=== PATIENT | female | born 1980 | race Caucasian/White ===

== ENCOUNTER 2020-11-18 12:21 | Emergency (ER) | payer SELFPAY ==
[~2020-11-18] VITALS: Ht 165.1 cm; Wt 51.7 kg
--- NOTE | 2020-11-18 13:05 | NUR ---
TO ER BED 16 VIA W/C FOR EVAL AND TREATMENT OF DIZZINESS.
[2020-11-18] MEDS ORDERED: IV NS 0.9% 1,000 ML BAG IV ONE (13:30)
[2020-11-18] MEDS ORDERED: MECLIZINE HCL 12.5 MG TABLET PO ONE (13:30)
[2020-11-18] MEDS: ONDANSETRON 4 MG TAB.RAPDIS PO ONE ×2 (14:00→14:11)
[2020-11-18] MEDS ORDERED: MECLIZINE HCL 25 MG TABLET ONE (14:01)
[2020-11-18] MEDS ORDERED: ONDANSETRON HCL/PF 4 MG/2 ML VIAL ONE (14:01)
[2020-11-18 14:25] LABS: BASOPHILS % (AUTO) 0.3 % (0.0-2.0); EOSINOPHILS % (AUTO) 0.9 % (0.0-6.0); HEMATOCRIT 36 % (33-45); HEMOGLOBIN 11.7 g/dL (11.5-14.8); LYMPHOCYTES # (AUTO) 1.9 K/uL (0.8-4.8); LYMPHOCYTES % (AUTO) 25.7 % (20.0-44.0); MEAN CORPUSCULAR HGB CONC 32 g/dl (31.0-36.0); MEAN CORPUSCULAR VOLUME 90 fL (82-100); MONOCYTES # (AUTO) 0.4 K/uL (0.1-1.30); MONOCYTES % (AUTO) 5.5 % (2.0-12.0); NEUTROPHILS # (AUTO) 4.9 K/uL (1.8-8.9); NEUTROPHILS % (AUTO) 67.6 % (43.0-81.0); PLATELET COUNT (AUTO) 277 K/uL (150-450); RED BLOOD CELL COUNT(AUTO) 4.03 MIL/uL (4.0-5.2); WHITE BLOOD COUNT (AUTO) 7.3 K/uL (4.3-11.0)
[2020-11-18] MEDS ORDERED: ONDANSETRON HCL/PF - ER 4 MG/2 ML VIAL IV ONE (14:30)
[2020-11-18 14:42] LABS: ALANINE AMINOTRANSFERASE 25 U/L (12-78); ALBUMIN 3.8 g/dL (3.4-5.0); ALKALINE PHOSPHATASE 65 U/L (46-116); ASPARTATE AMINOTRANSFERASE 12 U/L (15-37); BILIRUBIN,DIRECT 0.1 mg/dL (0.0-0.2); BILIRUBIN,TOTAL 0.5 mg/dL (0.2-1.0); CALCIUM, SERUM 8.7 mg/dL (8.5-10.1); CARBON DIOXIDE 27 mmol/L (21-32); CHLORIDE 104 mmol/L (98-107); CREATININE 0.6 mg/dL (0.6-1.3); GLUCOSE 94 mg/dL (74-106); POTASSIUM 3.2 mmol/L (3.5-5.1); SODIUM SERUM 141 mmol/L (136-145); TOTAL PROTEIN, SERUM 7.8 g/dL (6.4-8.2); UREA NITROGEN, BLOOD 8 mg/dL (7-18)
[2020-11-18] MEDS ORDERED: IV NS 0.9% 1,000 ML IV ONE (15:00)
[2020-11-18 15:46] LABS: BILIRUBIN,URINE NEGATIVE (NEGATIVE); COLOR,URINE YELLOW (YELLOW); LEUKOCYTE ESTERASE ,URINE SMALL (NEGATIVE); NITRITE, URINE NEGATIVE (NEGATIVE); PROTEIN,URINE NEGATIVE (NEGATIVE); UGLUCOSE NEGATIVE (NEGATIVE); UROBILINOGEN,URINE 0.2 EU/dL (0.2)
[2020-11-18 15:48] LABS: BACTERIA,URINE None seen /HPF (None Seen); RBC,URINE 0-2 /HPF (0-2); SQUAMOUS EPITHELIAL CELL,UR Moderate /HPF (None Seen)
--- NOTE | 2020-11-18 15:52 | NUR ---
PT TO RADIOLOGY FOR HEAD CT SCAN VIA [facility].
--- NOTE | 2020-11-18 16:26 | NUR ---
DR MUÑIZ AT BEDSIDE FOR EVAL.
[2020-11-18] MEDS ORDERED: NITR100C6 PO (16:41)
[2020-11-18] MEDS ORDERED: ONDA4TAB5 PO (16:41)
--- NOTE | 2020-11-18 17:08 | NUR ---
IV removed. Catheter intact and site benign. Pressure and 4x4 applied to site. No bleeding noted.Patient discharged to home in stable condition. Written and verbal after care instructions given. Patient verbalizes understanding of instruction.
[2020-11-18 17:25] VITALS: BP 125/60
[2020-11-18 18:32] LABS: THYROID STIMULATING HORMONE 1.142 uIU/mL (0.358-3.74)
[2020-11-19] MEDS ORDERED: TAMO20TA4 PO (11:15)
== END 2020-11-18 17:26 | disposition home or self-care (01) ==
LOC: ER 12:35
DX: R55 Syncope and collapse (principal); R53.1 Weakness; N39.0 Urinary tract infection, site not specified; E87.6 Hypokalemia; Z98.890 Other specified postprocedural states
CPT/HCPCS: 36415; 70450; 71045; 80048; 80076; 81001; 84439; 84443; 84484; 84703; 85025; 85730; 87086; 93005; 96361; 96374; 99285; J2405 ×2; J7030 ×2; J8597

== ENCOUNTER 2020-11-19 10:48 | Inpatient (IN) | payer MEDICAID ==
[~2020-11-19] VITALS: Ht 165.1 cm; Wt 52.2 kg
[~2020-11-19 10:48] MED LIST: NITR100C6 PO; ONDA4TAB5 PO
--- NOTE | 2020-11-19 10:56 | NUR ---
TO ER BED 1, [id number] FR[facility] HOME C/O DIZZINESS SINCE YESTERDAY. NAUSEA, VOMITTED S/P, AAOX4, BREATHING EVEN AND NON LABORED, CHANGED TO A GOWN, ATTACHED TO MONITOR
[2020-11-19] MEDS ORDERED: TAMO20TA4 PO (11:15)
--- NOTE | 2020-11-19 11:17 | NUR ---
MOVE SHEET SUBMITTED AND CALLED FOR TELE BED.
[2020-11-19] MEDS ORDERED: MECLIZINE HCL 12.5 MG TABLET PO ONE (11:30)
[2020-11-19] MEDS ORDERED: ONDANSETRON 4 MG TAB.RAPDIS PO ONE (11:30)
[2020-11-19] MEDS ORDERED: IV NS 0.9% 500 ML BAG IV ONE (11:30)
--- NOTE | 2020-11-19 11:30 | NUR ---
COVID SWAB DONE AND SENT
--- NOTE | 2020-11-19 11:35 | NUR ---
URINE COLLECTED AND SENT TO LAB
[2020-11-19] MEDS ORDERED: MECLIZINE HCL 25 MG TABLET ONE (11:40)
[2020-11-19] MEDS ORDERED: ONDANSETRON 4 MG TAB.RAPDIS ONE (11:41)
[2020-11-19 12:03] LABS: BASOPHILS % (AUTO) 0.4 % (0.0-2.0); EOSINOPHILS % (AUTO) 0.4 % (0.0-6.0); HEMATOCRIT 34 % (33-45); HEMOGLOBIN 10.9 g/dL (11.5-14.8); LYMPHOCYTES # (AUTO) 1.1 K/uL (0.8-4.8); LYMPHOCYTES % (AUTO) 16.9 % (20.0-44.0); MEAN CORPUSCULAR HGB CONC 32 g/dl (31.0-36.0); MEAN CORPUSCULAR VOLUME 90 fL (82-100); MONOCYTES # (AUTO) 0.2 K/uL (0.1-1.30); MONOCYTES % (AUTO) 3.6 % (2.0-12.0); NEUTROPHILS # (AUTO) 4.9 K/uL (1.8-8.9); NEUTROPHILS % (AUTO) 78.7 % (43.0-81.0); PLATELET COUNT (AUTO) 224 K/uL (150-450); RED BLOOD CELL COUNT(AUTO) 3.77 MIL/uL (4.0-5.2); WHITE BLOOD COUNT (AUTO) 6.2 K/uL (4.3-11.0)
[2020-11-19 12:12] LABS: CALCIUM, SERUM 8.4 mg/dL (8.5-10.1); CARBON DIOXIDE 28 mmol/L (21-32); CHLORIDE 107 mmol/L (98-107); CREATININE 0.7 mg/dL (0.6-1.3); GLUCOSE 94 mg/dL (74-106); POTASSIUM 3.3 mmol/L (3.5-5.1); SODIUM SERUM 141 mmol/L (136-145); UREA NITROGEN, BLOOD 8 mg/dL (7-18)
[2020-11-19 12:28] LABS: ALANINE AMINOTRANSFERASE 22 U/L (12-78); ALBUMIN 3.4 g/dL (3.4-5.0); ALKALINE PHOSPHATASE 57 U/L (46-116); ASPARTATE AMINOTRANSFERASE 15 U/L (15-37); BILIRUBIN,DIRECT 0.1 mg/dL (0.0-0.2); BILIRUBIN,TOTAL 0.4 mg/dL (0.2-1.0); TOTAL PROTEIN, SERUM 7.1 g/dL (6.4-8.2)
[2020-11-19] MEDS ORDERED: IOHEXOL-350 100 ML VIAL IV ONE (12:38)
[2020-11-19] MEDS ORDERED: CT SWABBABLE VALVE TRANS SET 1 EA INFUS.SET MC ONE (12:38)
[2020-11-19] MEDS ORDERED: IV NS 0.9% 250 ML IV ONE (12:39)
--- NOTE | 2020-11-19 12:42 | NUR ---
TAKEN TO CT
[2020-11-19 12:46] LABS: BILIRUBIN,URINE Negative (NEGATIVE); COLOR,URINE YELLOW (YELLOW); LEUKOCYTE ESTERASE ,URINE Negative (NEGATIVE); NITRITE, URINE Negative (NEGATIVE); PH,URINE 7.5 (5.0-8.0); PROTEIN,URINE Negative (NEGATIVE); UGLUCOSE Negative (NEGATIVE); UROBILINOGEN,URINE 0.2 EU/dL (0.2)
[2020-11-19 12:48] LABS: BACTERIA,URINE Few /HPF (None Seen); SQUAMOUS EPITHELIAL CELL,UR Few /HPF (None Seen); WBC,URINE 0-2 /HPF (0-3)
--- NOTE | 2020-11-19 12:51 | NUR ---
[facility] CALLED SAFETY SPEC PAGED.
--- NOTE | 2020-11-19 14:23 | NUR ---
REPORT GIVEN TO YEHUDA FOR DEBBY
--- NOTE | 2020-11-19 14:50 | NUR ---
TELE ADMISSION NOTES RECEIVED REPORT FROM [facility] ED NURSE. PATIENT ADMITTED TO UNIT WITH STABLE VITAL SIGNS. ALERT AND ORIENTED X 4, ABLE TO MAKE NEEDS KNOWN. NO S/S OF DISTRESS NOTED. NO SOB. BREATHING IS EVEN AND UNLABORED. PATIENT COMPLAINED OF HEADACHE /. IV ACCESS LAC#18 PATENT, INTACT AND FLUSHING WELL. ORIENTED PATIENT TO UNIT, STAFF AND CALL LIGHT. SAFETY MEASURES IN PLACE WITH BED LOCKED AT LOW POSITION, SIDE RAILS UP X 2. WILL MONITOR PATIENT THROUGHOUT SHIFT.
[2020-11-19] MEDS ORDERED: MAG HYDROX/AL HYDROX/SIMETH 30 ML UDC PO PRN (15:00)
[2020-11-19] MEDS ORDERED: ZOLPIDEM TARTRATE 5 MG TABLET PO PRN (15:00)
[2020-11-19] MEDS ORDERED: ACETAMINOPHEN 325 MG TABLET PO PRN (15:00)
[2020-11-19] MEDS ORDERED: ONDANSETRON HCL/PF 4 MG/2 ML VIAL IVP PRN (15:00)
[2020-11-19] MEDS ORDERED: MAGNESIUM HYDROXIDE 30 ML UDC PO PRN (15:00)
[2020-11-19] MEDS ORDERED: Z GUARD REMEDY 2 OZ OINT TP PRN (15:00)
[2020-11-19] MEDS ORDERED: HYDROCODONE/APAP 5/325MG TABLET PO PRN (15:00)
[2020-11-19] MEDS: IV NS 0.9% 1,000 ML IV PRN (16:40)
--- NOTE | 2020-11-19 19:08 | NUR ---
MS RN CLOSING NOTE PATIENT IS RESTING BED, COMFORTABLY. NO S/S OF DISTRESS NOTED. BREATHING IS EVEN AND UNLABORED. ALL NEEDS MET THROUGHOUT SHIFT. SAFETY MEASURES MAINTAINED WITH BED LOCKED AT LOW POSITION AND SIDE RAILS UP X2. CALL LIGHT IS WITHIN REACH. WILL ENDORSE CONTINUITY OF CARE TO ONCOMING SHIFT.
--- NOTE | 2020-11-19 19:10 | NUR ---
CONTINUITY OF CARE Patient is A/O x4. Sinus Rhythm in the Tele monitor. Ongoing IVF. No c/o pain, denies dizziness. Fall precaution maintained.
[2020-11-19] MEDS: MECLIZINE HCL 25 MG TABLET PO SCH (20:34)
[2020-11-19 20:39] VITALS: BP 99/67
[2020-11-20 01:31] VITALS: BP 93/60
[2020-11-20 04:48] VITALS: BP 97/64
[2020-11-20] MEDS: MECLIZINE HCL 25 MG TABLET PO SCH ×2 (05:37→13:01)
[2020-11-20] MEDS: IV NS 0.9% 1,000 ML IV PRN (05:46)
--- NOTE | 2020-11-20 06:21 | NUR ---
END OF SHIFT REPORT Patient is A/O x4. Stable on room air, Oxygen sat in high 90's. Ambulated to the bathroom, feels less dizziness. No c/o chest pain. Sinus Rhythm in the Tele monitor HR 60. Ongoing IVF. Fall precaution maintained. Will endorse to Oncoming RN.
[2020-11-20 06:50] LABS: BASOPHILS % (AUTO) 0.5 % (0.0-2.0); EOSINOPHILS % (AUTO) 2.1 % (0.0-6.0); HEMATOCRIT 30 % (33-45); HEMOGLOBIN 9.7 g/dL (11.5-14.8); LYMPHOCYTES # (AUTO) 1.6 K/uL (0.8-4.8); MEAN CORPUSCULAR HGB CONC 33 g/dl (31.0-36.0); MEAN CORPUSCULAR VOLUME 91 fL (82-100); MONOCYTES # (AUTO) 0.3 K/uL (0.1-1.30); MONOCYTES % (AUTO) 5.6 % (2.0-12.0); NEUTROPHILS # (AUTO) 3.2 K/uL (1.8-8.9); NEUTROPHILS % (AUTO) 60.8 % (43.0-81.0); PLATELET COUNT (AUTO) 192 K/uL (150-450); RED BLOOD CELL COUNT(AUTO) 3.27 MIL/uL (4.0-5.2); WHITE BLOOD COUNT (AUTO) 5.3 K/uL (4.3-11.0)
[2020-11-20 06:57] LABS: CALCIUM, SERUM 8.1 mg/dL (8.5-10.1); CREATININE 0.5 mg/dL (0.6-1.3); MAGNESIUM 1.7 mg/dL (1.8-2.4); PHOSPHORUS 3.4 mg/dL (2.5-4.9)
--- NOTE | 2020-11-20 07:15 | NUR ---
MS RN OPENING NOTE RECEIVED PATIENT ON BED. PATIENT IS ALERT/ ORIENTED X 4, RESTING COMFORTABLY. NO S/S OF DISTRESS NOTED. BREATHING IS EVEN AND UNLABORED. PATIENT DOES NOT COMPLAIN OF ANY PAIN OR DIZZINESS AT THIS TIME. SAFETY MEASURES MAINTAINED WITH BED LOCKED AT LOW POSITION AND SIDE RAILS UP X2. CALL LIGHT IS WITHIN REACH AT ALL TIMES. WILL CONTINUE TO MONITOR PATIENT.
[2020-11-20 07:27] LABS: THYROID STIMULATING HORMONE 0.898 uIU/mL (0.358-3.74)
[2020-11-20] MEDS ORDERED: PANTOPRAZOLE 40 MG TABLET.DR PO SCH (07:30)
[2020-11-20 08:00] VITALS: BP 100/65
[2020-11-20] MEDS ORDERED: TAMOXIFEN CITRATE 10 MG TABLET PO SCH (09:00)
[2020-11-20] MEDS: POTASSIUM CHLORIDE 20 MEQ TAB.PRT.SR PO SCH ×3 (11:04→13:47)
[2020-11-20] MEDS: Magnesium 1GM/D5W 100ML PREMIX 100 ML IV SCH ×2 (11:06→12:44)
--- NOTE | 2020-11-20 11:30 | NUR ---
AUTOMOTIVE BRAKE SPECIALIST NOTE PATIENT SEEN BY DR. CHURCH WITH ORDERS MADE AND CARRIED OUT. WITH ORDER TO DISCHARGE PATIENT. HEALTH TEACHING DONE AND VERBALIZED UNDERSTANDING. COMFORT MEASURES PROVIDED. WILL CONTINUE TO MONITOR PATIENT.
[2020-11-20] MEDS ORDERED: MECL-159 PO (12:39)
--- NOTE | 2020-11-20 13:15 | NUR ---
RN NOTE COMPLETED MG AND K CORRECTION. TOLERATED WELL. IV ACCES REMOVED AND COVERED WITH DRY DRESSING, TOLERATED WELL. WILL CONTINUE TO MONITOR PATIENT.
--- NOTE | 2020-11-20 13:25 | NUR ---
RN NOTE PATIENT DISCHARGED ORDERED. PATIENT WITH . PATIENT ACCOMPANIED BY NURSE TO LOBBY. PATIENT WITH NO SIGNS OF DISTRESS. ENDORSED ACCORDINGLY.
== END 2020-11-20 14:28 | disposition home or self-care (01) | DRG 111 ==
LOC: ER 11:14 → TELE 14:41
DX: H83.09 Labyrinthitis, unspecified ear (principal); D64.9 Anemia, unspecified; E87.6 Hypokalemia; Z20.822 Contact with and (suspected) exposure to COVID-19; Z85.3 Personal history of malignant neoplasm of breast; Z90.11 Acquired absence of right breast and nipple; Z79.899 Other long term (current) drug therapy; Z79.810 Long term (current) use of selective estrogen receptor modulators (SERMs)
CPT/HCPCS: 36415; 70450-TC; 70496-TC; 70498-TC; 80048-TC; 80061-TC; 80076-TC; 81001; 83735-TC; 84100-TC; 84443-TC; 84484-TC; 84703-TC; 85025-TC; 87081-TC; C9803; G0378; J3475; J7030; J7040; J7050; J8597; Q0162; Q9967